=== PATIENT | male | born 1950 | race Native Hawaiian/Other Pacific Islander ===

== ENCOUNTER 2021-03-10 12:24 | Outpatient (CLI) | payer OTHER ==
[~2021-03-10 12:24] MED LIST: AMBIEN CR12.5 MG PO; ASA LOW DOSE81 MG PO; BIOTIN1000 MCG PO; BUPROPN HCL300 MG PO; CRESTOR5 MG PO; DICL1GEL2 TOP; FOLI1TAB26 PO; LANSOPRAZOLE15 MG PO; METO25TA4 PO; NAPROSYN500 MG PO; NORCO 10/325***1 TAB PO; PRAS10TA PO; TRAM50TA PO
== END 2021-03-10 21:12 | disposition home or self-care (01) ==
LOC: LAB 12:24
PROVIDERS: ATTEND Nurse Practitioner Family
DX: L73.8 Other specified follicular disorders (principal)
CPT/HCPCS: 87070; 87205